=== PATIENT | male | born 1975 | race Caucasian/White ===

== ENCOUNTER 2016-08-12 09:53 | Emergency (ER) | payer OTHER ==
[~2016-08-12] VITALS: Ht 170.2 cm; Wt 66.0 kg
[~2016-08-12 09:53] MED LIST: BAYE325T3 PO; ERYT.5%O EACH EYE; TRAM50 PO
[2016-08-12 09:54] VITALS: BP 130/86; PULSE 102; RESP 16; TEMP 98.9; O2SAT 96
--- NOTE | 2016-08-12 10:50 | PD ---
HPI Chief Complaint: Injury Time Seen by Provider: 10:50 Travel History International Travel<30 days: No Contact w/Intl Traveler<30days: No Traveled to known affect area: No History of Present Illness HPI 41-year-old male presents emergency Department with complaint of left knee swelling and pain since after falling and hitting his leg on a metal bar. He said he has had symptoms like this to the knee in the past. The injury did not occur to the knee; it occurred just above the knee to the thigh area. He did have a knot to the thigh area which has subsided. Denies paresthesias, loss of sensation to the affected extremity. Reports decreased range of motion to the knee secondary to pain and swelling. Denies fever, vomiting. Has taken ibuprofen with some relief of pain. Has iced and elevated the knee with no relief of symptoms. No known allergies. Has no other medical complaints. No other modifying factors or associated signs and symptoms. PFSH Past Medical History GERD: Yes Past Surgical History Neurologic Surgery: Yes (GLOBAL AMNESIA IN PAST) Social History Alcohol Use: Yes (8 beers daily) Tobacco Use: Yes (1 PPD) Substance Use: No Allergies-Medications (Allergen,Severity, Reaction): Coded Allergies: No Known Allergies (Unverified , 08/12/16) Reported Meds & Prescriptions Reported Meds & Active Scripts Active Review of Systems Except as stated in HPI: all other systems reviewed are Neg Physical Exam Narrative GENERAL: Well-nourished, well-developed male patient, in no acute distress SKIN: Warm and dry. HEAD: Atraumatic. Normocephalic. EYES: Pupils equal and round. No scleral icterus. No injection or drainage. ENT: Mucosa pink and moist. Airway patent. NECK: Trachea midline. CARDIOVASCULAR: Regular rate. RESPIRATORY: No accessory muscle use. GASTROINTESTINAL: Flat. MUSCULOSKELETAL: Left knee is edematous and without erythema or ecchymosis; with full range of motion and flexion to 90; joint stable with negative drawer test; no obvious deformity; with tenderness on palpation to the patellar aspect. Left lower extremity supple and non-tense with 2+ pedal pulses and sensory intact. No edema. No cyanosis. NEUROLOGICAL: Awake and alert. Oriented 3. No obvious cranial nerve deficits. Motor grossly within normal limits. Normal speech. PSYCHIATRIC: Appropriate mood and affect; insight and judgment normal. Data Data Last Documented VS Vital Signs Date Time Temp Pulse Resp B/P Pulse Ox O2 Delivery O2 Flow Rate FiO2 08/12/16 09:54 98.9 102 16 130/86 96 Room Air Orders Knee, Complete (4vws) (08/12/16 10:39) Ketorolac Inj (Toradol Inj) (08/12/16 11:00) MDM Medical Decision Making Medical Screen Exam Complete: Yes Emergency Medical Condition: Yes Medical Record Reviewed: Yes Differential Diagnosis Bursitis, knee contusion, patellar fracture Narrative Course 41-year-old male with left knee pain and swelling after falling hitting his left thigh on . He reports having swelling to the same knee after injuring it in the past. Patient is afebrile and nontoxic-appearing. He denies fever, vomiting. Toradol ordered. Left knee x-ray ordered. 1136: Left knee x-ray concludes Small calcification cephalad to the patella felt to relate to calcification of the quadriceps tendon. I cannot completely exclude a tiny avulsion fracture off the patella but this is felt much less likely. Patient provided a copy of the x-ray report. Warren bandage and crutches provided for support. Instructed patient to follow up with orthopedic. Patient verbalizes understanding and agreement with treatment plan. Patient is medically cleared and stable for discharge. Discussed reasons to return to the emergency department. Instructed patient to follow up with primary care provider. Patient agrees with treatment plan. The patients vital signs are stable and the patient is stable for outpatient follow-up and treatment. Patient discharged home, stable and in no acute distress. Diagnosis Primary Impression: Left knee pain Qualified Code: M25.562 - Left knee pain, unspecified chronicity Referrals: Primary Care Physician Patient Instructions: Crutch Instructions (ED), General Instructions, Knee Pain (ED) Departure Forms: Tests/Procedures, Work Release Enter return to work date: August 19, 2016 Additional Instructions: Tylenol or ibuprofen as needed and as directed to reduce pain and inflammation Rest, ice, compress, and elevate extremity to decrease pain and inflammation Knee Brace for support Crutches for support Avoid aggravating activity; increase activity as tolerated Follow-up with primary care provider Return to the emergency department immediately with worsening symptoms Med/Other Pt SpecificInfo: Prescription(s) given Scripts Naproxen 500 Mg [id number] Mg PO BID PRN (PAIN SCALE 1 TO 10) #20 TAB Ref 0 Prov:Ofelia Luz 08/12/16 Methylprednisolone Dosepak (Medrol Dosepak)4 Mg Dspk4 Mg PO DIRECTED #1 DSPK Ref 0 Per Pharmacist direction Prov:Ofelia Luz 08/12/16 Disposition: 01 DISCHARGE HOME Condition: Stable Ofelia Luz August 12, 2016 10:50
[2016-08-12] MEDS ORDERED: KETOROLAC TROMETHAMINE 60 MG/2 ML (IM) VIAL IM ONE (11:00)
--- NOTE | 2016-08-12 11:33 | RADRPT ---
EXAM DATE/TIME: 08/12/2016 11:24 [facility] COMPARISON: No previous studies available for comparison. INDICATIONS : Patient states he fell, joint pain. MEDICAL HISTORY : None. SURGICAL HISTORY : None. ENCOUNTER: Initial ACUITY: 4 - 6 days PAIN SCORE: 5/10 LOCATION: Left Knee FINDINGS: 4 views the right knee reveal a small triangle shaped ossification projecting just cephalad to the pa tella. This is felt to relate to calcification within the quadriceps tendon. The remaining bony struc tures are unremarkable. No discrete fracture or dislocation. No joint effusion. Soft tissues are unre markable. CONCLUSION: Small calcification cephalad to the patella felt to relate to calcification of the quadriceps tendon. I cannot completely exclude a tiny avulsion fracture off the patella but this is felt much less like ly. Jeremy Vee Jr., MD on August 12, 2016 at 11:28 Board Certified Radiologist. This report was verified electronically.
[2016-08-12] MEDS ORDERED: NAPR500T PO (11:38)
[2016-08-12] MEDS ORDERED: MEDR4PAK PO (11:38)
== END 2016-08-12 12:10 | disposition home or self-care (01) ==
LOC: NEPK 09:53
DX: M25.562 Pain in left knee (principal); F17.200 Nicotine dependence, unspecified, uncomplicated; Z87.19 Personal history of other diseases of the digestive system; W19.XXXA Unspecified fall, initial encounter; W22.09XA Striking against other stationary object, initial encounter
CPT/HCPCS: 73564; 96372; 99283; E0113; J1885

== ENCOUNTER → 2016-09-10 | Outpatient (CLI) | payer OTHER ==
[~2016-09-10] MED LIST changes: -BAYE325T3 PO; -ERYT.5%O EACH EYE; +MEDR4PAK PO; +NAPR500T PO; -TRAM50 PO
--- NOTE | 2016-09-11 08:24 | RADRPT ---
EXAM DATE/TIME: 09/10/2016 16:31 [facility] COMPARISON: No previous studies available for comparison. INDICATIONS : Meniscus tear. MEDICAL HISTORY : None. SURGICAL HISTORY : None. ENCOUNTER: Initial ACUITY: > 1 year PAIN SCORE: 0/10 LOCATION: Left knee TECHNIQUE: Multiplanar, multisequence MRI examination was performed without contrast. FINDINGS: CRUCIATE LIGAMENTS: ACL and PCL are intact. MENISCI: There is extensive horizontal cleavage tear of the medial meniscus involving the lateral and posterio r aspect of the meniscus contacting the central aspect of the upper portion of the meniscus posterior ly. The lateral meniscus is intact. COLLATERAL LIGAMENTS: MCL and LCL complexes are intact. BONE/CARTILAGE: Bone marrow signal is homogeneous. Articular cartilage signal is within normal limits. MISCELLANEOUS: The moderate joint effusion present with small David's cyst. CONCLUSION: Medial meniscal tear. Joint effusion. Zachary Celis MD on September 10, 2016 at 23:23 Board Certified Radiologist. This report was verified electronically.
== END ==
LOC: HRAD 15:59
PROVIDERS: ATTEND Orthopaedic Surgery
DX: S83.207A Unspecified tear of unspecified meniscus, current injury, left knee, initial encounter (principal); X58.XXXA Exposure to other specified factors, initial encounter
CPT/HCPCS: 73721

== ENCOUNTER → 2016-11-01 | Day surgery (SDC) | payer OTHER ==
[~2016-11-01] VITALS: Ht 172.7 cm; Wt 67.0 kg
[~2016-11-01] MED LIST changes: +ACETAMINOPHEN/HYDROcodone 325 MG/5 MG TAB PO PRN; +BUPIVACAINE/EPINEPHRINE 0.25% PF 30 ML VIAL ONE; +CHLORHEXIDINE GLUCONATE 2 % 1 PACK (2 CLOTHS) TOPICAL PRN; +CHLORHEXIDINE GLUCONATE 4% SOLN 120 ML BTL TOPICAL SCH; +INSULIN HUMAN REGULAR 1,000 UNITS/10 ML VIAL SQ PRN; +KETOROLAC TROMETHAMINE 30 MG/ML (IVP) VIAL IM PRN; +KETOROLAC TROMETHAMINE 60 MG/2 ML (IM) VIAL IM ONE; +LACTATED RINGER'S 1000 ML IV PRN; +METOPROLOL TARTRATE 25 MG TAB PO PRN; +MIDAZOLAM HCL 2 MG/2 ML VIAL ONE; +ONDANSETRON HCL 4 MG/2 ML VIAL IV PRN; +ONDANSETRON HCL 4 MG/2 ML VIAL IV PUSH ONE; +POVIDONE IODINE 5% (ANTISEPSIS KIT) 4 APPLICATIONS EACH NARE PRN; +PROPOFOL 200 MG/20 ML AMP IV ONE; +SODIUM CHLORID 0.9% 500 ML IV PRN; +TRIAMCINOLONE ACETONIDE 40 MG/ML VIAL ONE
[2016-11-01 10:00] VITALS: BP 128/93; PULSE 77; RESP 14; TEMP 97.6; O2SAT 99
[2016-11-01 14:00] VITALS: BP 122/78; PULSE 78; RESP 16; TEMP 98.1; O2SAT 99
--- NOTE | 2016-11-04 08:23 | MP ---
cc: IFEANYI AGUIRRE M.D. DATE OF SURGERY: 11/01/2016 PREOPERATIVE DIAGNOSIS: Tear medial meniscus of the left knee joint. POSTOPERATIVE DIAGNOSIS: Tear medial meniscus of the left knee joint. OPERATIVE PROCEDURE PERFORMED: Arthroscopic subtotal medial meniscectomy and chondroplasty, medial femoral condyle. SURGEON: Ifeanyi Aguirre MD. DESCRIPTION OF THE PROCEDURE IN DETAIL: The patient was placed on the operating table in the supine position. Adequate general anesthesia was administered by the anesthesiologist. The patient's left knee was prepped and draped in the usual sterile fashion. An anterolateral portal was used for introduction of the double cannula and the joint was distended with lactated Ringer's solution. An anteromedial portal was used for instrumentation. We did use tourniquet prior to the procedure. The systematic examination of the joint revealed the suprapatellar pouch and patellofemoral joint unremarkable. Both anterior and posterior cruciate ligaments did appear to be also unremarkable and intact. The medial meniscus showed a radial tear posteriorly extending to the posterior horn where there was thinning of the remainder of the posterior horn. The adjacent area of the articular surface of the medial femoral condyle was already showing grade 1 of chondromalacia. The meniscal resector was placed into the posterior compartment and a subtotal medial meniscectomy was performed preserving the majority of the meniscus. The articular surface was then smoothed for chondroplasty with the same instrument. An examination of the lateral compartment was unremarkable with intact lateral meniscus. After thorough irrigation, all instruments were removed and the two stab wounds were closed with simple 3-0 nylon. An intra-articular injection of 10 mL of 0.25% Marcaine with epinephrine was injected through the lateral portal. Xeroform gauze was applied over both wounds and a bulky dressing applied over this following which the tourniquet was deflated at 11 minutes. Sponge count, needle counts and instrument counts were reported to be correct x2. The estimated blood loss was nil. The patient tolerated the procedure well and was transferred to the recovery room in satisfactory condition. Ifeanyi Aguirre MD [facility] /12:56 PM /8:24 AM
== END | disposition home or self-care (01) ==
LOC: PHSDC 09:33
PROVIDERS: ATTEND Orthopaedic Surgery
DX: S83.242A Other tear of medial meniscus, current injury, left knee, initial encounter (principal); F17.200 Nicotine dependence, unspecified, uncomplicated; X58.XXXA Exposure to other specified factors, initial encounter
CPT/HCPCS: 01400; 29881; J1885; J2250; J2405; J3010; J7120; J3301